=== PATIENT | female | born 1970 | race Asian ===

== ENCOUNTER 2016-12-11 22:06 | Emergency (ER) | payer MEDICAID, OTHER ==
[~2016-12-11] VITALS: Ht 165.1 cm; Wt 61.8 kg
[2016-12-11 22:28] VITALS: BP 90/58
[2016-12-11] MEDS ORDERED: GuaiFENesin/D-METHORPHAN [SUGAR-FREE] 200-20MG/10 ML SYRUP UDCUP PO ONE (23:45)
[2016-12-11] MEDS ORDERED: ACETAMINOPHEN/CODEINE 300-30 MG TABLET PO ONE (23:45)
[2016-12-11] MEDS ORDERED: ALBUTEROL SULFATE HFA 90 MCG/PUFF 8 GM INHALER IH ONE (23:45)
== END 2016-12-11 23:59 | disposition home or self-care (01) ==
LOC: EMS 22:07
DX: J40 Bronchitis, not specified as acute or chronic (principal); J06.9 Acute upper respiratory infection, unspecified
CPT/HCPCS: 94640; 99283